=== PATIENT | female | born 1995 | race Asian ===

== ENCOUNTER 2016-12-14 20:25 | Emergency (ER) | payer OTHER ==
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
== END 2016-12-14 22:35 | disposition home or self-care (01) ==
LOC: CED 20:25
DX: S00.93XA Contusion of unspecified part of head, initial encounter (principal); S70.01XA Contusion of right hip, initial encounter; V89.2XXA Person injured in unspecified motor-vehicle accident, traffic, initial encounter; Y92.410 Unspecified street and highway as the place of occurrence of the external cause
CPT/HCPCS: 70450; 73502; 99284